=== PATIENT | female | born 1970 | race Caucasian/White ===

== ENCOUNTER 2018-03-04 17:24 | Emergency (ER) | payer OTHER ==
[2018-03-04 17:24] VITALS: BMI 40.1
[2018-03-04 17:44] VITALS: O2SAT 99
--- NOTE | 2018-03-04 18:06 | ED PDOC ---
HPI: Back Time Seen by Provider: 03/04/18 17:47 Chief Complaint (Nursing): Back Pain Chief Complaint (Provider): Back Pain History Per: Patient History/Exam Limitations: no limitations Onset/Duration Of Symptoms: Days (x4) Additional Complaint(s): Patient is a 47 y/o female who presents to the ED for evaluation of lower back pain and right hip/groin pain that started 4 days ago. She denies any fall or trauma. Patient tried motrin and tylenol #3 but this has not helped. She is able to walk but has pain when doing so. Patient denies any bowel or bladder dysfunction. Past Medical History Reviewed: Historical Data, Nursing Documentation, Vital Signs Vital Signs: Last Vital Signs Temp 98.2 F 03/04/18 17:40 Pulse 105 H 03/04/18 17:40 Resp 20 03/04/18 17:40 BP 119/82 03/04/18 17:40 Pulse Ox 99 03/04/18 17:40 - Medical History PMH: Diabetes, Gastritis - Surgical History Other surgeries: Left foot surgery - Family History Family History: States: No Known Family Hx - Living Arrangements Living Arrangements: With Family - Social History Current smoker - smoking cessation education provided: No Alcohol: None Drugs: Denies - Home Medications Home Medications: Ambulatory Orders Medication Instructions Recorded Cyclobenzaprine [Cyclobenzaprine 10 mg PO Q8 PRN #30 tab 03/03/16 HCl] Glyburide 5 mg PO DAILY 03/03/16 MetFORMIN [glucOPHAGE] 1,000 mg PO BID 03/03/16 Naproxen [Naprosyn] 500 mg PO BID PRN #30 tab 03/03/16 traMADol [Ultram] 50 mg PO Q8 PRN #10 tab 04/19/16 Acetaminophen/Codeine 1 tab PO Q4H PRN #6 tab 07/08/17 [Tylenol/Codeine 300 MG/30 MG] Diclofenac Sodium [Voltaren] 2 gm TP TID PRN #100 gel..gram. 07/08/17 diaZEpam [Valium] 5 mg PO Q6 PRN #5 tab 07/08/17 Cyclobenzaprine [Cyclobenzaprine 10 mg PO TID PRN #20 tab 03/04/18 HCl] Naproxen [Naprosyn] 500 mg PO BID #20 tab 03/04/18 - Allergies Allergies/Adverse Reactions: Allergies Allergy/AdvReac Type Severity Reaction Status Date / Time No Known Allergies Allergy Verified 03/04/18 17:40 Review of Systems ROS Statement: Except As Marked, All Systems Reviewed And Found Negative Constitutional: Negative for: Fever Musculoskeletal: Positive for: Back Pain (lower back pain), Leg Pain (right hip and groin) Physical Exam - Reviewed Nursing Documentation Reviewed: Yes Vital Signs Reviewed: Yes - Physical Exam Appears: Positive for: Well, Non-toxic, No Acute Distress Skin: Positive for: Normal Color. Negative for: Rash Eye Exam: Positive for: Normal appearance Back: Positive for: Vertebral Tenderness (mild tenderness to midline lumbar spine, no step off, negative bilateral straight leg raise) Extremity: Positive for: Normal ROM (Full ROM right lower extremity), Tenderness (tenderness to right groin with no swelling, ecchymosis or erythema, no palpable lymph nodes) Neurologic/Psych: Positive for: Alert, Oriented - Laboratory Results Urine POC: Negative Urine dip results: Negative for: Leukocyte Esterase, Blood, Nitrate, Ketones, Glucose, Bilirubin, Protein - ECG O2 Sat by Pulse Oximetry: 99 (RA) Pulse Ox Interpretation: Normal - Other Rad LS spine x-ray X-Ray: Interpreted by Me, Viewed By Me X-Ray Interpretation: no fx, no dis Pelvis and right hip x-ray X-Ray: Interpreted by Me, Viewed By Me X-Ray Interpretation: no fx, no dis Medical Decision Making Medical Decision Making: Time: 18:03 Initial Impression:47 y/o female with back pain and right leg pain Initial Plan: --Urine --urine dip --Toradol 30 mg IM --Tylenol 975 mg PO --Valium 5 mg PO --X-Ray Hip min 2V w/ Pelvis RT --X-Ray LS Spine AP/LAT Patient feels better after meds given in ED. Rx naprosyn and flexeril given. Advised rest to affected area and PMD or ortho follow up in 2-3 days. Scribe Attestation: Documented by Jamey Stratton, acting as a scribe for Zainab Sarabia PA-C Provider Scribe Attestation: All medical record entries made by the Scribe were at my direction and personally dictated by me. I have reviewed the chart and agree that the record accurately reflects my personal performance of the history, physical exam, medical decision making, and the department course for this patient. I have also personally directed, reviewed, and agree with the discharge instructions and disposition. Disposition - Clinical Impression Clinical Impression: Back pain, Groin pain - Patient ED Disposition Is Patient to be Admitted: No Counseled Patient/Family Regarding: Studies Performed, Diagnosis, Need For Followup, Rx Given - Disposition Referrals: Fiordaliza Maguire MD [Staff Provider] - Disposition: Routine/Home Disposition Time: 19:28 Condition: IMPROVED Additional Instructions: TAKE RX MEDS DIRECTED NEEDED FOR PAIN. FOLLOW UP IN 2-3 DAYS WITH PRIMARY CARE DOCTOR OR ORTHOPEDIST. Prescriptions: Cyclobenzaprine [Cyclobenzaprine HCl] 10 mg PO TID PRN #20 tab PRN Reason: Muscle Spasm Naproxen [Naprosyn] 500 mg PO BID #20 tab Instructions: Groin Strain, Low Back Pain (DC), Back Exercises Forms: [facility] (Armenian)
[2018-03-04 21:08] VITALS: BP 118/70; PULSE 80; RESP 16; TEMP 97.9
--- NOTE | 2018-03-05 08:05 | RAD ---
PROCEDURE: RIGHT HIP WITH PELVIS RADIOGRAPHS HISTORY: pain COMPARISON: Abdomen pelvis CT 09/25/2014. TECHNIQUE: Coronal projections of the right hip and pelvis been submitted with frog-leg lateral right hip projection as well. FINDINGS: No acute fracture or destructive lesion throughout the pelvic ring or the left hip joint. Pubic symphysis and sacroiliac joints appear unremarkable. No dislocation right hip joint. Pubic symphysis appears unremarkable. IMPRESSION: No acute fracture or dislocation right hip joint. Pelvic ring appears intact including pubic symphysis.
--- NOTE | 2018-03-05 08:12 | RAD ---
PROCEDURE: Radiographs of the Lumbar Spine. HISTORY: pain COMPARISON: Abdomen pelvis CT examination 09/25/2014. FINDINGS: BONES: There is subtle straightening of lumbar curvature without fracture or spondylolisthesis appreciated on acute basis. Diminished disc height at L5-S1 indicates degenerating intervertebral disc. No spondylosis or destructive bony lesion appreciable. Facet joints are intact and unremarkable appearing throughout. DISC SPACES: As above. OTHER FINDINGS: Old fracture of the coccyx is identified. IMPRESSION: No acute fracture spondylolisthesis mild straightening lumbar curvature and degenerative L5-S1 disc identified. Stable chronic fracture coccyx as compared to prior abdomen and pelvis CT 09/25/2014.
== END 2018-03-04 20:30 | disposition home or self-care (01) ==
LOC: H.ER 17:24
DX: M54.9 Dorsalgia, unspecified (principal); R10.30 Lower abdominal pain, unspecified; E11.9 Type 2 diabetes mellitus without complications; Z79.84 Long term (current) use of oral hypoglycemic drugs
CPT/HCPCS: 72100; 73502; 96372; 99282; J1885